=== PATIENT | female | born 1985 | race Caucasian/White ===

== ENCOUNTER 2024-10-25 06:16 | Day surgery (SDC) | payer OTHER, SELFPAY | END 2024-10-25 13:41 | disposition home or self-care (01) | LOC: GI 06:16 | PROVIDERS: ATTENDING PHYSICIAN Internal Medicine Gastroenterology | DX: K59.04 Chronic idiopathic constipation (principal); Q43.8 Other specified congenital malformations of intestine; K64.8 Other hemorrhoids | CPT/HCPCS: 45378 ==